=== PATIENT | female | born 1975 | race Caucasian/White ===

== ENCOUNTER → 2016-11-26 | Outpatient (CLI) | payer BC ==
[~2016-11-26] MED LIST: DIPH25CA65 PO; ESCI10TA17 PO; FERR18TA2 PO; LORA-741 PO; [UNRECOGNIZED DRUG - CODE] PO
--- NOTE | 2016-11-26 14:03 | MAMMOGRAPHY REPORT ---
BILATERAL DIGITAL SCREENING MAMMOGRAM TOMOSYNTHESIS WITH CAD: 11/26/2016 CLINICAL HISTORY: Routine screening. Baseline exam. TECHNIQUE: Bilateral breast tomosynthesis in addition to standard 2D mammography was performed. Curre nt study was also evaluated with a Computer Aided Detection (CAD) system. COMPARISON: No prior exams were available for comparison. BREAST COMPOSITION: The tissue of both breasts is heterogeneously dense, which may obscure small mas ses. FINDINGS: There is an asymmetry with possible associated architectural distortion in the superior po sterior left breast, only seen on the MLO view, for which additional spot compression tomosynthesis v iews, exaggerated lateral left CC view and possible ultrasound is recommended. No other suspicious mass, architectural distortion or cluster of suspicious microcalcifications is se en bilaterally. IMPRESSION: ACR BI-RADS CATEGORY 0: INCOMPLETE EVALUATION: NEED ADDITIONAL IMAGING EVALUATION The asymmetry with possible associated architectural distortion in the left superior, posterior breas t needs additional evaluation. The patient will be called to schedule an appointment. Approximately 10% of breast cancers are not detected with mammography. A negative mammographic report should not delay biopsy if a clinically suggestive mass is present. Treasure Gan M.D. ay/:11/26/2016 12:31:22 Mergers And Acquisitions Associate: Patsy PIERCE)(Alfredo), [facility] letter sent: Addl Imaging 0 BI-RADS Code: ACR BI-RADS Category 0: Incomplete Evaluation: Need Additional Imaging Evaluation
== END | disposition home or self-care (01) ==
LOC: C.MAMM 08:12
PROVIDERS: ATTEND Family Medicine
DX: Z12.31 Encounter for screening mammogram for malignant neoplasm of breast (principal); R92.8 Other abnormal and inconclusive findings on diagnostic imaging of breast

== ENCOUNTER → 2016-12-05 | Outpatient (CLI) | payer BC ==
--- NOTE | 2016-12-05 12:23 | MAMMOGRAPHY REPORT ---
UNILATERAL LEFT DIGITAL DIAGNOSTIC MAMMOGRAM TOMOSYNTHESIS AND TARGETED LEFT ULTRASOUND: 12/05/2016 CLINICAL HISTORY: Callback from screening mammogram for asymmetry with possible left breast ip architect ural distortion. TECHNIQUE: Breast tomosynthesis in addition to standard 2D mammography was performed. Spot compress ion left CC and MLO 2-D and tomosynthesis images were obtained. COMPARISON: Comparison is made to exam dated: 11/26/2016 mammogram - [facility]. BREAST COMPOSITION: The tissue of the left breast is heterogeneously dense, which may obscure small masses. FINDINGS: The previously described asymmetry in the left superior posterior breast on the MLO view ef faces on the spot compression views and has the appearance of normal fibroglandular tissue on the anant osynthesis images. No architectural distortion is noted in this region on the additional views. The re is a small 5 mm nodular asymmetry seen within the left posterior breast along the posterior nipple line on one of the spot compression cc views, which has the appearance of normal fibroglandular tiss ue on the tomosynthesis images although ultrasound was performed of the region. Targeted ultrasound was performed of the left breast at 6:00, 12:00, and subareolar region, in the re gion of the asymmetry seen on one view only. Sonographically normal tissue is seen, without evidence of a mass or other suspicious sonographic abnormality. IMPRESSION: ACR BI-RADS CATEGORY 2: BENIGN, TARGETED ULTRASOUND ACR BI-RADS CATEGORY 2: BENIGN 1. The left superior breast asymmetry effaces on the additional views, and is benign and compatible with normal fibroglandular tissue. No persistent architectural distortion was noted on the additiona l views. 2. Small asymmetry in the left posterior breast on the additional views, without corresponding sonog raphic abnormality evident. The asymmetry is benign and compatible with normal fibroglandular tissue . There is no mammographic or targeted sonographic evidence of malignancy. A 1 year screening mammogram is recommended. The patient has been verbally notified of the results. Approximately 10% of breast cancers are not detected with mammography. A negative mammographic report should not delay biopsy if a clinically suggestive mass is present. Lorri Lorenzana M.D. /:12/05/2016 08:55:13 Cardroom Drawing Runner: Dorothy FELICIANO(Dayanna)(M), [facility] letter sent: Normal 1/2 BI-RADS Code: ACR BI-RADS Category 2: Benign Ultrasound BI-RADS: ACR BI-RADS Category 2: Benign
== END | disposition home or self-care (01) ==
LOC: C.MAMM 08:19
PROVIDERS: ATTEND Family Medicine
DX: N64.89 Other specified disorders of breast (principal)

== ENCOUNTER → 2017-05-10 | Outpatient (CLI) | payer OTHER | END | disposition home or self-care (01) | LOC: C.LABSPEC 17:27 | PROVIDERS: ATTEND Obstetrics & Gynecology | DX: Z30.431 Encounter for routine checking of intrauterine contraceptive device (principal) ==

== ENCOUNTER → 2017-09-05 | Outpatient (CLI) | payer OTHER | END | disposition home or self-care (01) | LOC: C.LAB 14:35 | PROVIDERS: ATTEND Student in an Organized Health Care Education/Training Program | DX: R06.02 Shortness of breath (principal) ==

== ENCOUNTER → 2017-09-05 | Outpatient (CLI) | payer OTHER ==
--- NOTE | 2017-09-05 14:35 | DIAGNOSTIC IMAGING REPORT ---
CHEST 2 VIEWS ROUTINE CLINICAL HISTORY: SOB AT REST dyspnea COMPARISON STUDY: 05/11/2015 FINDINGS: The bones soft tissues and hemidiaphragms are normal. The cardiomediastinal silhouette is normal. The lungs are clear. The pulmonary vasculature is normal. IMPRESSION: Negative chest. The above report was generated using voice recognition software. It may contain grammatical, syntax or spelling errors. Electronically signed by: Abner Vora M.D. 09/05/2017 2:33 PM Dictated Date/Time: 09/05/2017 2:32 PM
== END | disposition home or self-care (01) ==
LOC: C.RAD1850 14:21
PROVIDERS: ATTEND Student in an Organized Health Care Education/Training Program
DX: R06.02 Shortness of breath (principal)

== ENCOUNTER → 2017-11-25 | Outpatient (CLI) | payer OTHER ==
[~2017-11-25] MED LIST changes: +CYAN100073 PO; -DIPH25CA65 PO; +GLUC1TAB22 PO; +LEVO19.5 IU; +PSYLPOW38 PO; -[UNRECOGNIZED DRUG - CODE] PO
[2017-11-25 14:56] LABS: BASO % 0.2 %; BASO ABS # 0.01 K/uL (0-0.2); EOS % 3.7 %; EOS ABS # 0.24 K/uL (0-0.5); HEMATOCRIT 41.7 % (37-47); HEMOGLOBIN 13.7 g/dL (12.0-16.0); IG# 0.01 K/uL (0.00-0.02); MEAN CELL VOLUME 91.4 fL (80-100); MEAN CORPUSCULAR HGB CONC 32.9 g/dl (32-36); MEAN PLATELET VOLUME 9.8 fL (7.4-10.4); MONO % 5.7 %; MONO ABS # 0.37 K/uL (0.11-0.59); NEUT % 67.2 %; NEUT ABS # 4.38 K/uL (1.4-6.5); PLATELET COUNT 202 K/uL (130-400); RED CELL DISTRIBUTION WIDTH CV 12.8 % (11.5-14.5); RED CELL DISTRIBUTION WIDTH SD 42.6 fL (36.4-46.3); WHITE BLOOD COUNT 6.51 K/uL (4.8-10.8)
[2017-11-25 15:12] LABS: BLOOD UREA NITROGEN 17 mg/dl (7-18); CALCIUM 8.3 mg/dl (8.5-10.1); CARBON DIOXIDE 25 mmol/L (21-32); GLUCOSE 90 mg/dl (70-99); POTASSIUM 3.7 mmol/L (3.5-5.1); SODIUM 138 mmol/L (136-145)
== END | disposition home or self-care (01) ==
LOC: C.LAB 11-22 12:00
PROVIDERS: ATTEND Obstetrics & Gynecology
DX: Z01.818 Encounter for other preprocedural examination (principal)

== ENCOUNTER → 2017-11-29 | Outpatient (CLI) | payer OTHER ==
[~2017-11-29] MED LIST changes: -FERR18TA2 PO
--- NOTE | 2017-11-29 14:35 | MAMMOGRAPHY REPORT ---
BILATERAL DIGITAL SCREENING MAMMOGRAM TOMOSYNTHESIS WITH CAD: 11/29/2017 CLINICAL HISTORY: Routine screening. Patient has no complaints. TECHNIQUE: The study was acquired using full field digital technology and interpreted from soft copy. Breast tomosynthesis in addition to standard 2D mammography was performed. Current study was also ev aluated with a Computer Aided Detection (CAD) system. COMPARISON: Comparison is made to exams dated: 12/05/2016 mammogram, 11/26/2016 mammogram, and 12/05/2016 ultrasound - [facility]. BREAST COMPOSITION: The tissue of both breasts is heterogeneously dense, which may obscure small mass es. FINDINGS: No suspicious masses, calcifications, or areas of architectural distortion are noted in either breast . There has been no significant interval change compared to prior exams. IMPRESSION: ACR BI-RADS CATEGORY 1: NEGATIVE There is no mammographic evidence of malignancy. A 1 year screening mammogram is recommended.( 019) The patient will receive written notification of the results. Some breast cancers are not detected with mammography. A negative mammographic report should not zainab y biopsy if a clinically suggestive mass is present. Lorri Lorenzana M.D. ah/:11/29/2017 08:25:07 Cherry Pitter: RT Maryam(R)(M), [facility] letter sent: Normal 1/2 BI-RADS Code: ACR BI-RADS Category 1: Negative
== END | disposition home or self-care (01) ==
LOC: C.MAMM 08:00
PROVIDERS: ATTEND Family Medicine
DX: Z12.31 Encounter for screening mammogram for malignant neoplasm of breast (principal)

== ENCOUNTER 2017-12-16 07:40 | Observation (INO) | payer OTHER ==
[2017-11-19 13:08] VITALS: BMI 25.0
[2017-11-25 13:39] VITALS: BMI 25.0
--- NOTE | 2017-11-25 14:02 | PAT Medication Instructions ---
Service Date Nov 25, 2017. Current Home Medication List Cyanocobalamin (B12), 2,000 MCG PO QAM Escitalopram (Lexapro), 10 MG PO QPM Glucosamine Hydrochloride (Glucosamine), 1,500 MG PO BID Levonorgestrel (Iud) (Kyleena), 1 DOSE IU UD Lorazepam (Ativan), 0.5 MG PO Q6H PRN for Anxiety Psyllium Husk (Bulk) (Psyllium Husk), 1,500 MG PO BID Medication Instructions For Your Scheduled Surgery -Continue as directed: Levonorgestrel (Iud) (Kyleena), 1 DOSE IU UD - Hold the following medications 2 weeks prior to surgery: Glucosamine Hydrochloride (Glucosamine), 1,500 MG PO BID Psyllium Husk (Bulk) (Psyllium Husk), 1,500 MG PO BID - Hold the following medications the morning of surgery: Cyanocobalamin (B12), 2,000 MCG PO QAM - Take the following medications the morning of surgery with a sip of water: Lorazepam (Ativan), 0.5 MG PO Q6H PRN for Anxiety (if needed) - Take the following medications as scheduled the night before surgery: Escitalopram (Lexapro), 10 MG PO QPM Lorazepam (Ativan), 0.5 MG PO Q6H PRN for Anxiety (if needed) If you have any questions please call us at [phone] or [phone] or [phone]
[~2017-12-16] VITALS: Ht 170.2 cm; Wt 73.6 kg
[2017-12-16] VITALS (9 sets, daily range): BP systolic 107–127; BP diastolic 59–83; PULSE 55–83; TEMP 36.6–37; O2SAT 95–100; Ht 170.2 cm; Wt 73.6 kg
[~2017-12-16 07:40] MED LIST changes: +CEFAZOLIN 2000MG IV PUSH 15 ML IV SCH; +DEXAMETHASONE SOD INJ 4 MG/ML VIAL ONE; +FENTANYL CITRATE INJ 50 MCG/1 ML 2 ML VIAL ONE; +GLYCOPYRROLATE INJ 0.2 MG/ML VIAL ONE; +LACTATED RINGER'S 1000ML 1,000 ML IV SCH; +LIDOCAINE HCL 2% 2 ML VIAL (20MG/ML) ONE; +MIDAZOLAM HCL 1 MG/ML 2ML VIAL ONE; +NEOSTIGMINE METHYLSULFATE 5 MG/5 ML SYR ONE; +ONDANSETRON INJ 2 MG/ML 2 ML VIAL ONE; +PROPOFOL IV EMULSION 10 MG/ML 20 ML VIAL ONE; +ROCURONIUM BROMIDE 10 MG/ML 5 ML VIAL ONE
[2017-12-16] MEDS ORDERED: BUPIVACAINE 0.5 % 5 MG/1 ML PF 10ML VIAL ONE (09:47)
--- NOTE | 2017-12-16 10:05 | History & Physical Bridge Note ---
H&P Re-Evaluation Bridge Note: I have examined the patient, reviewed the History & Physical and in the interval since the performance of the History & Physical I have noted the following changes of clinical significance: No changes noted
[2017-12-16] MEDS ORDERED: METHYLENE BLUE 0.5% 10 ML VIAL ONE (10:37)
[2017-12-16] MEDS ORDERED: FENTANYL CITRATE INJ 50 MCG/1 ML 2 ML VIAL ONE (12:18)
--- NOTE | 2017-12-16 12:33 | [facility] Post Operative Brief Note ---
Immediate Operative Summary Operative Date Dec 16, 2017. Pre-Operative Diagnosis 1. Abnormal Genital Bleeding 2. Female Genital Symptoms Post-Operative Diagnosis Same, pelvic adhesions Procedure(s) Performed Robot Assisted Total Laparoscopic Hysterectomy, Bilateral salpingectomies, repair of perineal tear, cystoscopy. lysis of adhesions Surgeon Dr. Nat Amin Enterprise Project Manager Surgeon(s) Dr. Tung Thomson Estimated Blood Loss 30mL Findings See Below (uterus enlarged with fibroid approx 8-10wks, normal ovaries and tubes bilat, nl liver edge. adhesions of sigmoid colon to post culdesac) cysto findings, nl bladder filling normal ureteral jets. sm perineal tear Fluids (cc crystalloids) 1500 Specimens Permanent A. Uterus, Cervix, Bilateral Fallopian Tubes Drains best Anesthesia Type General Complication(s) none Disposition Accompanied Pt To Recover: no Disposition: Recovery Room / PACU
[2017-12-16] MEDS ORDERED: MTR600X PO (12:36)
[2017-12-16] MEDS ORDERED: OXYC-57 PO (12:36)
[2017-12-16] MEDS ORDERED: LACTATED RINGER'S 1000ML 1,000 ML IV SCH (12:37)
--- NOTE | 2017-12-16 12:37 | Discharge Instructions ---
Discharge Instructions Date of Service Dec 16, 2017. Admission Reason for Admission: Dysmenorrhea, Abnormal Uterine Bleeding Discharge Discharge Diagnosis / Problem: after surgery Discharge Goals Goal(s): Routine recovery after surgery Activity Recommendations Activity Limitations: as noted below . Instructions / Follow-Up Instructions / Follow-Up POST OPERATIVE: BOWEL FUNCTION/MEDICATIONS: 1. Constipation pain and discomfort are the most common complaints 5-7 days after surgery. Points 2-6 address the things that can help. 2. Chewing gum can help stimulate the gut and help improve digestion and motility. 3. Milk of Magnesia 1-2 times per day until return of bowel function. 4. Colace is a stool softener that helps. Taking this 2-3 times per day until bowel function returns to normal is highly recommended. 5. Dulcolax is a laxative that may be used if several days have passed without a bowel movement. Alternatively Miralax may be used daily instead. 6. Drink plenty of fluids as this will also reduce constipation. 7. Narcotic pain medications will be prescribed by your physician. They are safe to use and we encourage you to use them. If you are not allergic, ibuprofen will also be prescribed. Many patients will be able to transition off of the narcotic medications to ibuprofen by postoperative day 3. ACTIVITY RECOMMENDATIONS: 1. Get plenty of rest and listen to your body. If you are tired, take a nap. 2. You may shower, but do not take a tub bath until you see your doctor at the 2 week post operative visit. 3. Absolutely NOTHING in the vagina until you are examined by your doctor at the 8 week visit. At that visit it will be determined when such activities can be resumed. This can range from 6-12 weeks after your surgery depending on healing time. 4. The main physical activity in the first week should be walking. By the second week you can slowly increase activity. There are no limits on walking up and down stairs. 5. Do not lift more than 5-10 lbs for 4 weeks. Remember the "one-handed rule", i.e. if you can lift something with only one hand it's likely okay. 6. Minimize histotechnician like vacuuming and exercising for 4 weeks. "Overdoing it" can lead to incisions not healing, pain and vaginal bleeding , so again, listen to your body. 7. Driving can be resumed when you feel able. Do not drive within 24 hours of taking a narcotic medication. EXPECTATIONS: 1. Vaginal spotting, bleeding and discharge are common after surgery. There may even be an odor to the discharge which is often related to sutures used in the vagina. If you experience heavy vaginal bleeding, call the office number day or night [phone]. 2. Bladder discomfort is common after surgery from the catheter. This usually resolves in 1-2 weeks. 3. By the end of the 3rd or 4th week you should be feeling much better. It may take up to 6 weeks for your energy levels to return to normal. 4. Narcotic medications have side effects such as: dizziness, headache, nausea and/or vomiting. If you suspect your pain medication is causing problems, call our office and we may be able to prescribe an alternate medication. 5. The skin incisions are often covered with a liquid bandage. This will gradually peel off over time. CALL THE OFFICE IF YOU HAVE ANY OF THE FOLLOWIN. Temperature of 101 degrees or higher. 2. Severe abdominal or pelvic pain not relieved by pain medication. 3. Persistent nausea or vomiting. 4. Increased pain with urination or difficulty urinating. 5. Bright red bleeding that soaks more than 1 pad per hour. CONTACT PHONE NUMBERS: Main Office: [phone] Surgical Nurse: [phone] extension [phone] FOLLOW-UP: Post-Operative Appointments: * Individual instructions will have been given about the timing of your first examination, but this is usually at the end of the second week home. * You will need to call the office at soon after discharge to make the appointment for your post-op check-up if it has not already been scheduled. * Additional information regarding activity, sexual intercourse and when to return to work will be given at this appointment. WE WISH YOU A SPEEDY RECOVERY! Current Hospital Diet Patient's current hospital diet: Discharge Diet Recommended Diet: Regular Diet Procedures Procedures Performed: Robot Assisted Total Laparoscopic Hysterectomy, Bilateral salpingectomies, repair of perineal tear, cystoscopy. lysis of adhesions Pending Studies Studies pending at discharge: yes List of pending studies: pathology Medical Emergencies . Who to Call and When: Medical Emergencies: If at any time you feel your situation is an emergency, please call 911 immediately. . Non-Emergent Contact Non-Emergency issues call your: [employer] . . "Provider Documentation" section prepared by Nat Amin. . [place] Drug Monitoring Program Search Results: patient reviewed within database, no issues identified
[2017-12-16] MEDS ORDERED: IBUPROFEN 600 MG TAB PO PRN (12:45)
[2017-12-16] MEDS ORDERED: ACETAMINOPHEN 325 MG TAB PO PRN (12:45)
[2017-12-16] MEDS ORDERED: KETOROLAC TROMETHAMINE 30 MG/ML VIAL IV. PRN (12:45)
[2017-12-16] MEDS ORDERED: SIMETHICONE 80 MG CHEW PO PRN (12:45)
[2017-12-16] MEDS ORDERED: OXYCODONE/ACETAMINOPHEN 5-325 TAB PO PRN ×2 (12:45)
[2017-12-16] MEDS ORDERED: ZOLPIDEM TARTRATE 5 MG TAB PO PRN (12:45)
[2017-12-16] MEDS ORDERED: ONDANSETRON INJ 2 MG/ML 2 ML VIAL IV PRN ×2 (12:45→13:00)
[2017-12-16] MEDS ORDERED: KETOROLAC TROMETHAMINE 30 MG/ML VIAL ONE (12:59)
[2017-12-16] MEDS ORDERED: PROMETHAZINE HCL INJ 6.25 MG in SODIUM CHLORIDE 0.9% 50ML 50 ML IV PRN (13:00)
[2017-12-16] MEDS ORDERED: EpHEDrine SULFATE INJ 50 MG/ML AMP IV PRN (13:00)
[2017-12-16] MEDS ORDERED: FENTANYL CITRATE INJ 50 MCG/1 ML 2 ML VIAL IV PRN (13:00)
[2017-12-16] MEDS ORDERED: ATROPINE SULFATE 0.1 MG/ML 5ML SYR IV PRN (13:00)
--- NOTE | 2017-12-16 13:32 | Anesthesiology Progress Note ---
Anesthesia Post Op Note Date & Time Dec 16, 2017 at 13:32 Vital Signs Pain Intensity: 0 Vital Signs Past 12 Hours Date Time Temp Pulse Resp B/P (MAP) Pulse Ox O2 Delivery O2 Flow Rate FiO2 12/16/17 13:25 36.3 100 Nasal Cannula 2 12/16/17 13:17 49 16 12/16/17 13:17 49 16 100 12/16/17 13:16 111/67 12/16/17 13:12 57 16 100 12/16/17 13:12 57 16 12/16/17 13:11 126/62 12/16/17 13:07 47 16 12/16/17 13:07 47 16 100 12/16/17 13:06 125/70 12/16/17 13:02 48 12 12/16/17 13:02 48 12 100 12/16/17 13:01 117/69 12/16/17 13:00 56 12 100 12/16/17 13:00 59 12 12/16/17 12:56 123/70 12/16/17 12:55 51 12 100 12/16/17 12:55 51 12 12/16/17 12:51 132/67 12/16/17 12:50 65 12 100 12/16/17 12:50 64 12 12/16/17 12:46 124/71 12/16/17 12:45 56 12 100 12/16/17 12:45 57 12 12/16/17 12:41 132/69 12/16/17 12:40 36.0 72 15 132/69 99 Oxymask 10 12/16/17 08:03 36.8 74 18 127/83 (98) 98 Room Air Notes Mental Status: alert / awake / arousable, participated in evaluation Pt Amnestic to Procedure: Yes Nausea / Vomiting: adequately controlled Pain: adequately controlled Airway Patency, RR, SpO2: stable & adequate BP & HR: stable & adequate Hydration State: stable & adequate Anesthetic Complications: no major complications apparent
[2017-12-16] MEDS ORDERED: IV FLUIDS COMPLETED PRN (14:45)
--- NOTE | 2017-12-16 15:44 | OPERATIVE REPORT ---
DATE OF OPERATION: 12/16/2017 PREOPERATIVE DIAGNOSES: 1. Abnormal uterine bleeding. 2. Female genital symptoms. POSTOPERATIVE DIAGNOSES: 1. Abnormal uterine bleeding. 2. Female genital symptoms. 3. Pelvic adhesions. PROCEDURES: 1. Total laparoscopic hysterectomy. 2. Bilateral salpingectomies. 3. Lysis of adhesions. 4. Robotic assistance. 5. Cystoscopy. SURGEON: Nat Amin MD CUSTOMER EXPERIENCE PROFESSIONAL: Tung Thomson MD INTRAVENOUS FLUIDS: 1500. ANESTHESIA: General. ESTIMATED BLOOD LOSS: 30 mL. INDICATIONS: A 42-year-old with a history of heavy vaginal bleeding who tried alternative options for management and most recently the Kyleena with persistent pain and dissatisfaction with female genital symptoms with any vaginal bleeding, who desired definitive surgical therapy. FINDINGS: Uterus 8-10 weeks' size with evidence of fibroid. Bilateral ovaries and fallopian tubes within normal limits. Adhesions of the sigmoid to the posterior cul-de-sac and posterior lower uterine segment. Normal liver edge. Cystoscopy findings with normal bladder filling and normal ureteral jets. DESCRIPTION OF PROCEDURE: The patient taken to operating room and identified. After adequate general anesthesia was obtained, she was positioned in dorsal lithotomy position, prepped and draped in usual sterile fashion. Attention was turned to the patient's vagina where a Upton catheter was placed in the usual sterile fashion. A weighted speculum and anterior retractor were used to visualize the cervix which was grasped in its anterior lip with an Allis clamp. An IUD string was noted and the IUD was removed. The cervix was dilated using Hegar dilators. The uterus sounded to 9 cm. A single interrupted suture of #0 Vicryl was placed at 3 o'clock position. A small VCare uterine manipulator device was used as the introitus was narrowed and the hymenal ring appeared intact. The device was then placed into the uterus and the balloon was inflated. The initial cup was tied down using the suture material and a stabilizing cup was placed. Again, this was somewhat difficult due to the narrowed introitus. At that point, there was no evidence of any lacerations at the introitus. Attention was turned to the patient's abdomen where a supraumbilical incision was made with a scalpel. The Veress needle was placed intraperitoneally with an opening pressure of 4-6 mmHg. The 12 mm optical trocar was placed under direct visualization into the abdomen. The pelvis was inspected with the findings as noted above. Da Rosalba trocar sites were made left and right of the midline by first creating skin incisions and then placing under direct visualization da Rosalba trocars. The Swagbucksi robot was brought to the patient's bedside and the appropriate trocars were connected to the appropriate instrument arms. The Monopolar maryse and bipolar cautery instruments were entered into the abdomen under direct visualization. The surgeon then went to the console and with the manipulator from below the uterine ovarian, round ligament and fallopian tube complex was identified on the right side. The ureter was seen coursing well below the planned operative site. The pedicles were sequentially cauterized and then cut using the scissors. The anterior and posterior leaves of the broad ligament were opened up into and the bladder flap was created anteriorly from the right towards the midline. The uterine artery pedicle was then skeletonized. The uterine artery pedicle was then coagulated. Attention was turned to the left side where the uterine-ovarian ligament, fallopian tube and round ligament complex was identified. Again, these were coagulated and transected sequentially and the bladder flap was begun from the left side after the anterior and posterior leaves of the broad ligament were opened up into. The bladder was pushed away from the planned operative field. The uterine artery pedicle was skeletonized on this side and then coagulated and cut. This was done sequentially. The cardinal ligament attachments were then coagulated and cut. The attention was returned to the right uterine artery pedicles which were recoagulated and transected followed by the cardinal ligament attachments that were recoagulated and transected. Posteriorly, there were adhesions of the sigmoid colon. With some blunt retraction some bleeding occured. Due to the need for possible manipulation in regards to the scar tissue, a left patient assist port was also created by first creating a skin incision and placing under direct visualization, an 11 mm trocar. The adhesions on the posterior uterus were gradually released both with pressure from a sponge as well as from gentle traction.The sponge had been introduced and then removed through the patient assist port. The cup delineating the vaginal cuff was situated above an area of some additional adhesions and it was thought to be able to be avoided. Therefore, a colpotomy was begun. The cervix was carved away from the upper vagina circumferentially. The specimen was brought out through the vagina with some difficulty due to the narrowness of the introitus. It resulted in a small tear of the perineum. The bilateral fallopian tubes were then transected and removed from the abdomen to be sent as specimen. The 2-0 V-Loc 90 suture was introduced in the abdomen and the #1 instrument arm was replaced with a large needle roll off driver. The cuff was closed in the usual fashion using 2-0 V-Loc 90 suture with back sutures placed. The stitch was then cut. The needle was brought out through the abdomen. The pelvis was then irrigated. The CO2 pneumoperitoneum was released and there were no active bleeding sites. The incision sites were hemostatic. At this point, the procedure was terminated. IV methylene blue had already been given. The trocars were disconnected from the instrument arms. A cystoscopy took place with the findings as noted above. A new Upton catheter was placed. The perineal laceration was repaired in usual fashion using 3-0 Vicryl. The incisions were then stitched at the supraumbilical and left upper quadrant incision site at the fascia level with single interrupted sutures of 0 Vicryl. The remaining incision sites were stitched in a subcuticular fashion using 4-0 Vicryl. The patient was returned in supine position. She was awoken from anesthesia and transferred to recovery room in stable condition. All sponge, lap, needle counts were correct x2. I attest to the content of the Intraoperative Record and any orders documented therein. Any exceptions are noted below. ADRIENNED
--- NOTE | 2017-12-17 11:28 | DISCHARGE SUMMARY ---
ADMISSION DIAGNOSES: 1. Abnormal uterine bleeding. 2. Female genital symptoms. DISCHARGE DIAGNOSES: 1. Abnormal uterine bleeding. 2. Female genital symptoms. PROCEDURE: 1. Total laparoscopic hysterectomy. 2. Bilateral salpingectomy. 3. Repair of perineal tear. 4. Cystoscopy. 5. Lysis of adhesions. 6. Robotic assistance. BRIEF HISTORY AND HOSPITAL COURSE: A 42-year-old 0 with history of menorrhagia who desires definitive surgical management. She has tried control pills in the past; however, gets side effects that are intolerable. We most recently tried Kyleena, which did help with her menstrual flow; however, she felt cramping pain and also did have female genital symptoms related to any egress of blood. She desired definitive surgical treatment. She was aware of endometrial ablation, is not sure of heavy menstrual flow; however, with any risk of flow preferred definitive treatment. She was not interested in childbearing. She was in a same sex relationship. She was sure about her decision making. She underwent the above-stated procedures without incident. She had an unremarkable postoperative course. She was tolerating regular diet, voiding spontaneously without difficulty and ambulating without difficulty and was stable for discharge to home on her postop day #0. She was given appropriate discharge instructions as well as pain medication prescriptions and told to follow up in 2 weeks' time for postop checkup.
== END 2017-12-16 21:05 | disposition home or self-care (01) ==
LOC: C.ACU 07:40 → C.MS4N 08:10 → ENRESERV 12:57
PROVIDERS: ADMIT Obstetrics & Gynecology; ATTEND Obstetrics & Gynecology
DX: N93.9 Abnormal uterine and vaginal bleeding, unspecified (principal); R10.2 Pelvic and perineal pain; N73.6 Female pelvic peritoneal adhesions (postinfective); N80.0 Endometriosis of uterus; D21.5 Benign neoplasm of connective and other soft tissue of pelvis; Z79.899 Other long term (current) drug therapy; Z88.8 Allergy status to other drugs, medicaments and biological substances
CPT/HCPCS: 58301; 58571; S2900